=== PATIENT | female | born 1960 | race Two or more races ===

== ENCOUNTER 2022-04-03 06:45 | Emergency (ER) | payer OTHER ==
[~2022-04-03] VITALS: Ht 152.4 cm; Wt 73.0 kg
[2022-04-03 11:26] VITALS: BP 129/73
[2022-04-03] MEDS ORDERED: HYDROcodone-ACET 10/325MG TAB PO ONE (11:30)
[2022-04-03] MEDS ORDERED: HYDR-4798 PO (12:59)
[2022-04-03] MEDS ORDERED: IBUP800T27 PO (12:59)
[2022-04-03] MEDS ORDERED: HYDR-4902 PO (17:15)
== END 2022-04-03 13:22 | disposition home or self-care (01) ==
LOC: ER 06:45
DX: S52.502A Unspecified fracture of the lower end of left radius, initial encounter for closed fracture (principal); S52.612A Displaced fracture of left ulna styloid process, initial encounter for closed fracture; W01.0XXA Fall on same level from slipping, tripping and stumbling without subsequent striking against object, initial encounter; Y93.89 Activity, other specified; Y92.89 Other specified places as the place of occurrence of the external cause; Y99.8 Other external cause status
CPT/HCPCS: 29125; 73030; 73080; 73110